=== PATIENT | female | born 1960 | race Caucasian/White ===

== ENCOUNTER 2016-07-11 09:17 | Emergency (ER) | payer MEDICARE, OTHER ==
[2016-07-11] MEDS ORDERED: KETOROLAC TROMETHAMINE 30 MG/1 ML VIAL IVPUSH ONE (09:21)
--- NOTE | 2016-07-11 09:21 | PDOC ---
[id number]: No Limitations - History of Present Illness Initial Comments: 07/11/16 09:23 The patient is a 55-year-old woman with a significant past medical history of hypercholesterolemia, non-insulin dependent diabetes mellitus, osteoporosis and arthritis who presents to the emergency department for further evaluation of a headache. Patient states that she started to feel sick yesterday, as she experienced generalized body aches, a sore throat, a tactile fever and a headache. She reports taking Tylenol yesterday and today, without significant relief. she also report diffuse abdominal pain. No chills, weakness, cough, shortness of breath, rhinorrhea, nasal congestion, ear pain, nausea, vomiting, diarrhea, constipation. No urinary complaints. She denies chest pain, lightheadedness, dizziness, visual changes, neck pain. Allergies: Sulfonamide Antibiotics. Past Surgical History: None reported. Social History: No tobacco, ETOH and recreational drug use. Primary Care Physician: Dr. Eddie Medina. <Esthela Francis - Last Filed: 07/11/16 09:33> <Perla Jesus - Last Filed: 07/11/16 12:06> - General Chief Complaint: Headache Stated Complaint: MIGRAINE Time Seen by Provider: 07/11/16 09:20 Past History <Esthela Francis - Last Filed: 07/11/16 09:33> - Past Medical History Anemia: No Asthma: No Cancer: No Cardiac Disorders: No CVA: No COPD: No CHF: No Dementia: No Diabetes: Yes GI Disorders: Yes Disorders: Yes (cysts in the kidneys) HTN: No Hypercholesterolemia: Yes Liver Disease: No Seizures: No Thyroid Disease: No - Surgical History Abdominal Surgery: No Appendectomy: No Cardiac Surgery: No Cholecystectomy: No Lung Surgery: No Neurologic Surgery: No Orthopedic Surgery: No - Psycho/Social/Smoking Cessation Hx Anxiety: No Suicidal Ideation: No Smoking Status: No Smoking History: Never smoked Have you smoked in the past 12 months: Yes Number of Cigarettes Smoked Daily: 2 If you are a former smoker, when did you quit?: 7 MONTHS 'Breaking Loose' booklet given: 07/15/12 Hx Alcohol Use: No Drug/Substance Use Hx: No Substance Use Type: None Hx Substance Use Treatment: No <Perla Jesus - Last Filed: 07/11/16 12:06> - Past Medical History Allergies/Adverse Reactions: Allergies Allergy/AdvReac Type Severity Reaction Status Date / Time Sulfa (Sulfonamide Allergy Verified 07/11/16 09:22 Antibiotics) sulfur [From Sulfur-8] Allergy Rash Verified 07/11/16 09:22 Home Medications: Ambulatory Orders Zolpidem Tartrate 10 mg PO HS 07/14/12 Canagliflozin [Invokana] 300 mg PO DAILY 03/04/16 Cholecalciferol (Vitamin D3) [Vitamin D3 -] 400 unit PO DAILY 03/04/16 Omeprazole 20 mg PO DAILY 03/04/16 Amoxicillin/Potassium Clav [Augmentin 500-125 Tablet] 1 each PO BID #20 tablet 07/11/16 Review of Systems - Review of Systems Able to Perform ROS?: Yes Comments:: 07/11/16 09:29 Constitutional - +Tactile fever. Generalized body aches. Patient denies Chills, weakness, HEENT: +Sore throat. denies vision changes Respiratory: Denies cough, sob, hemoptysis Cardiac: denies chest pain, palpitations, light headedness, leg swelling Abd/GI: +Abdominal pain. denies nausea, vomiting, blood per rectum, melena, diarrhea : denies dysuria, frequency, discharge Musculoskeletal - denies back pain, joint swelling skin - denies bruising, erythema, rash neurological: +Headache. denies numbness, focal weakness, tingling, ataxia, weakness hematologic: denies anemia, easy bruising, easy bleeding <Esthela Francis - Last Filed: 07/11/16 09:33> *Physical Exam - Vital Signs Last Vital Signs Temp Pulse Resp BP Pulse Ox 99.6 F 117 H 18 104/69 96 07/11/16 09:19 07/11/16 09:19 07/11/16 09:19 07/11/16 09:19 07/11/16 09:19 - Physical Exam Comments: 07/11/16 09:30 GENERAL: The patient is awake, alert, and fully oriented, Nontoxic - in no acute distress. HEAD: Normocephalic, atraumatic. EYES: extraocular movements intact, sclera anicteric, conjunctiva clear. ENT: +Exudative pharyngitis. Normal voice, moist mucous membranes. NECK: Normal range of motion, supple without lymphadenopathy, JVD, or masses. LUNGS: Breath sounds equal, clear to auscultation bilaterally. No wheezes, no crackles, no rales. HEART: Regular rate and rhythm, normal S1 and S2 without murmur, rub or gallop. ABDOMEN: Soft, diffuse abdominal discomfort to palpation without guarding, rebound or rigidity. Normoactive bowel sounds. No masses. EXTREMITIES: Normal range of motion, no edema. No clubbing or cyanosis. No cords , erythema, or tenderness. NEUROLOGICAL: Fully Oriented, Alert, Normal Mood/Affect, Motor Strength 5/5. No facial assymetry, Normal speech SKIN: Warm, Dry, normal turgor, no rashes or lesions noted. <Esthela Francis - Last Filed: 07/11/16 09:33> ED Treatment Course - LABORATORY CBC & Chemistry Diagram: 07/11/16 09:30 07/11/16 09:30 <Perla Jesus - Last Filed: 07/11/16 12:06> Medical Decision Making - Medical Decision Making 07/11/16 09:41 I, Dr. Perla Jesus, attest that the scribes documentation that appears above has been prepared under my direction and personally reviewed by me. I confirmed that the note above accurately reflects all work, treatment, procedures, and medical decision-making performed by me. Pt seen and examined immediately upon arrival in ED. PT with an exudative pharyngitis, tachycardia and diffuse body aches, pt is afebrile here in ED but reports tactile fever at home. Pt has not taken tylenol or advil since 8pm yesterday 07/11/16 10:50 Pt feeling better, rapid strep is positive, pt labs noted, pt given 1 gram of rocephin ivpb , will check ua and dc home with augmentin x 10 days treating strep, ua is pending. Pt agrees with this dcplan 07/11/16 12:04 Pt's ua shaows small blood, no obvious infection, small hematuria may be related to strep,Pt discharged home on augmentin and is aware of need to f/u in 48-72 hrs. Pt agreed with this dc plan <Perla Jesus - Last Filed: 07/11/16 12:06> *DC/Admit/Observation/Transfer - Attestations Scribe Attestion: 07/11/16 09:31 Documentation prepared by Esthela Francis, acting as back office medical assistant for Perla Jesus DO. <Esthela Francis - Last Filed: 07/11/16 09:33> - Discharge Dispostion Admit: No <Perla Jesus - Last Filed: 07/11/16 12:06> Diagnosis at time of Disposition: Strep throat - Discharge Dispostion Disposition: HOME Condition at time of disposition: Stable - Prescriptions Prescriptions: Amoxicillin/Potassium Clav [Augmentin 500-125 Tablet] 1 each PO BID #20 tablet - Referrals Referrals: Eddie Medina MD [Primary Care Provider] - - Patient Instructions Printed Discharge Instructions: Strep Throat Additional Instructions: return to ed for fever not decreasing with tylenol or motrin, trouble breathing or as needed. Pt to f/u with pcp in next 24-72hrs for reevaluation Print Language: FAROESE
[2016-07-11] MEDS ORDERED: SODIUM CHLORIDE 1,000 ML IV STA (09:22)
[2016-07-11 09:23] VITALS: BMI 24.1
[2016-07-11] MEDS ORDERED: METOCLOPRAMIDE HCL INJECTION 10 MG/2 ML VIAL IVPB ONE (09:23)
[2016-07-11] MEDS ORDERED: KETOROLAC TROMETHAMINE 30 MG/1 ML VIAL ONE (09:28)
[2016-07-11] MEDS ORDERED: METOCLOPRAMIDE HCL INJECTION 10 MG/2 ML VIAL ONE (09:28)
[2016-07-11 09:45] LABS: BASOPHIL 0.3 % (0-2.0); MCH 32.1 pg (25.7-33.7); MCHC 34.4 g/dl (32.0-36.0); MEAN CELL VOLUME 93.2 fl (80-96); MEAN PLT VOLUME 8.1 fl (7.5-11.1); NEUTROPHILS 84.2 % (42.8-82.8); PLATELET COUNT 214 K/MM3 (134-434); RDW 13.6 % (11.6-15.6); WHITE BLOOD COUNT 16.8 K/mm3 (4.0-10.0)
[2016-07-11] MEDS ORDERED: CEFTRIAXONE 1,000 MG in DEXTROSE 5%-WATER - 50 ML IVPB ONE (09:54)
[2016-07-11 10:06] LABS: ALBUMIN 3.7 g/dl (3.4-5.0); ALK PHOS 105 U/L (45-117); ANION GAP 7 (8-16); BILIRUBIN,TOTAL 0.4 mg/dL (0.2-1.0); CALCIUM 8.6 mg/dL (8.5-10.1); CO2 29 mmol/L (21-32); CREATININE 0.7 mg/dL (0.55-1.02); GLUCOSE,RANDOM 132 mg/dL (74-106); SGOT/AST 16 U/L (15-37); SGPT/ALT 24 U/L (12-78); TOT PROT 7.3 g/dl (6.4-8.2)
[2016-07-11] MEDS ORDERED: CEFTRIAXONE 50 ML ONE (10:20)
[2016-07-11] MEDS ORDERED: methylPREDNISolone NA SUCC 125 MG/2 ML VIAL ONE (10:39)
[2016-07-11] MEDS ORDERED: DEXAMETHASONE SOD PHOSPHATE 10 MG/1 ML VIAL IVPB ONE (10:39)
[2016-07-11] MEDS ORDERED: DEXAMETHASONE SOD PHOSPHATE 10 MG/1 ML VIAL ONE (10:40)
[2016-07-11 11:23] LABS: URINE APPEARANCE CLEAR; URINE BILIRUBIN NEGATIVE (NEGATIVE); URINE COLOR STRAW; URINE GLUCOSE (UA) 1+ (NEGATIVE); URINE KETONE NEGATIVE (NEGATIVE); URINE LEUK ESTERASE NEGATIVE (NEGATIVE); URINE NITRITE NEGATIVE (NEGATIVE); URINE PROTEIN NEGATIVE (NEGATIVE); URINE UROBILINOGEN NEGATIVE E.U./dl (0.2-1.0)
[2016-07-11 11:24] LABS: URINE BLOOD 1+ (NEGATIVE)
[2016-07-11 11:25] LABS: URINE BACTERIA RARE /hpf (NONE SEEN); URINE MUCUS RARE; URINE RBC 5 /hpf (0-3); URINE WBC <1 /hpf (3-5)
[2016-07-11 11:43] VITALS: BP 105/58; PULSE 89; TEMP 98.7
== END 2016-07-11 11:50 | disposition home or self-care (01) ==
LOC: JER 09:17
PROC: 3E03329 Introduction of Other Anti-infective into Peripheral Vein, Percutaneous Approach (ICD-10-PCS; principal; 2016-07-11)
PROC: 3E0333Z Introduction of Anti-inflammatory into Peripheral Vein, Percutaneous Approach (ICD-10-PCS; 2016-07-11)
PROC: 3E033GC Introduction of Other Therapeutic Substance into Peripheral Vein, Percutaneous Approach (ICD-10-PCS; 2016-07-11)
DX: J02.0 Streptococcal pharyngitis (principal); B95.0 Streptococcus, group A, as the cause of diseases classified elsewhere; E11.9 Type 2 diabetes mellitus without complications; Z79.84 Long term (current) use of oral hypoglycemic drugs; E78.00 Pure hypercholesterolemia, unspecified; M12.9 Arthropathy, unspecified
CPT/HCPCS: 36415; 80053; 81003; 81015; 85025; 87070; 87077; 87430; 96365; 96375; 99283-25

== ENCOUNTER 2017-01-29 09:28 | Emergency (ER) | payer MEDICARE, OTHER ==
[2017-01-29 09:34] VITALS: TEMP 97.6; BMI 25.4
[2017-01-29] MEDS ORDERED: FAMOTIDINE 20 MG/50 ML IVPB 20 MG/50 ML MG IVPB ONE ×2 (10:02→10:18)
[2017-01-29] MEDS ORDERED: MAG HYDROX/AL HYDROX/SIMETH 355 ML ORAL.SUSP PO ONE (10:02)
[2017-01-29] MEDS ORDERED: ONDANSETRON 4 MG/2 ML VIAL IVPUSH ONE (10:02)
[2017-01-29] MEDS ORDERED: SODIUM CHLORIDE 1,000 ML IV STA (10:02)
--- NOTE | 2017-01-29 10:08 | PDOC ---
History of Present Illness - General Chief Complaint: Pain Stated Complaint: abd pain Time Seen by Provider: 01/29/17 09:46 History Source: Patient - History of Present Illness Timing/Duration: reports: constant, getting worse Quality: reports: other (pressure) Abdominal Pain Onset Location: reports: epigastric, generalized abdomen Pain Radiation: reports: back Past History - Past Medical History Allergies/Adverse Reactions: Allergies Allergy/AdvReac Type Severity Reaction Status Date / Time Sulfa (Sulfonamide Allergy Verified 01/29/17 09:34 Antibiotics) sulfur [From Sulfur-8] Allergy Rash Verified 01/29/17 09:34 Home Medications: Ambulatory Orders Zolpidem Tartrate 10 mg PO HS 07/14/12 Canagliflozin [Invokana] 300 mg PO DAILY 03/04/16 Cholecalciferol (Vitamin D3) [Vitamin D3 -] 400 unit PO DAILY 03/04/16 Omeprazole 40 mg PO DAILY 03/04/16 Famotidine [Pepcid] 20 mg PO DAILY #14 tablet 01/29/17 Gabapentin 300 mg PO TID 01/29/17 Mag Hydrox/Al Hydrox/Simeth [Mylanta Suspension -] 30 ml PO Q6H #1 bottle Ondansetron HCl [Zofran] 4 mg PO Q8H #15 tablet 01/29/17 Anemia: No Asthma: No Cancer: No Cardiac Disorders: No CVA: No COPD: No CHF: No DVT: No Dementia: No Diabetes: Yes GI Disorders: Yes Disorders: Yes (cysts in the kidneys) HTN: No Hypercholesterolemia: Yes Liver Disease: No Seizures: No Thyroid Disease: No - Surgical History Abdominal Surgery: No Appendectomy: No Cardiac Surgery: No Cholecystectomy: No Lung Surgery: No Neurologic Surgery: No Orthopedic Surgery: No - Suicide/Smoking/Psychosocial Hx Smoking Status: No Smoking History: Never smoked Have you smoked in the past 12 months: Yes Number of Cigarettes Smoked Daily: 2 If you are a former smoker, when did you quit?: 7 MONTHS Information on smoking cessation initiated: No 'Breaking Loose' booklet given: 07/15/12 Hx Alcohol Use: No Drug/Substance Use Hx: No Substance Use Type: None Hx Substance Use Treatment: No Review of Systems - Review of Systems Constitutional: No: Chills, Fever Respiratory: No: Shortness of Breath Cardiac (ROS): No: Chest Pain ABD/GI: Yes: Nausea, Vomiting. No: Blood Streaked Bowels, Rectal Bleeding, Tarry Stools : No: Dysuria *Physical Exam - Vital Signs Last Vital Signs Temp Pulse Resp BP Pulse Ox 97.6 F 71 18 97/65 100 01/29/17 09:32 01/29/17 09:32 01/29/17 09:32 01/29/17 09:32 01/29/17 09:32 - Physical Exam General Appearance: Yes: Appropriately Dressed, Intoxicated. No: Apparent Distress HEENT: positive: Normal Voice Neck: positive: Supple Respiratory/Chest: positive: Lungs Clear, Normal Breath Sounds. negative: Respiratory Distress Cardiovascular: positive: Regular Rate, S1, S2 Gastrointestinal/Abdominal: positive: Normal Bowel Sounds, Tender (diffusely, most notably to epigastrium, NT to RUQ), Soft. negative: Distended, Guarding, Rebound Musculoskeletal: negative: CVA Tenderness Extremity: positive: Normal Inspection Integumentary: positive: Dry, Warm Neurologic: positive: Fully Oriented, Alert, Normal Mood/Affect ED Treatment Course - LABORATORY CBC & Chemistry Diagram: 01/29/17 10:15 01/29/17 10:15 Medical Decision Making - Medical Decision Making 01/29/17 10:03 56 yo F, h/o HLD, NIDDM, OA, arthritis, gastritis on omeprazole daily, p/w diffuse abd pain radiating to back a/w nausea and 1 e/o vomiting x several days. States pain worse w/ food. No acute change in BM, melena, BRBPR, dysuria, f/c. States sxs similar to her gastritis. No h/o excessive ETOH use or gallstones. No h/o pancreatitis. Denies CP or SOB. See exam Epigastric pain Feels like pt's gastritis (gastritis and hiatal hernia on endoscopy in 2012, neg hpylori as per records-on omeprazole) Hypotensive to 90s/60s but well oz and in NAD w/ diffuse ttp but most notably in epigastrium -GI cocktail -IVF -ekg/labs -reassess 01/29/17 11:40 Pt reports feeling better at this time and feels comfortable going home. Will dc to f/u with her automotive painter helper *DC/Admit/Observation/Transfer Diagnosis at time of Disposition: Epigastric abdominal pain - Discharge Dispostion Disposition: HOME Condition at time of disposition: Improved - Prescriptions Prescriptions: Famotidine [Pepcid] 20 mg PO DAILY #14 tablet Mag Hydrox/Al Hydrox/Simeth [Mylanta Suspension -] 30 ml PO Q6H #1 bottle Ondansetron HCl [Zofran] 4 mg PO Q8H #15 tablet - Referrals Referrals: James Garza MD [Primary Care Provider] - - Patient Instructions Printed Discharge Instructions: Gastritis Additional Instructions: Take medications as directed and follow up with your automotive painter helper - Post Discharge Activity
[2017-01-29] MEDS ORDERED: ONDANSETRON 4 MG/2 ML VIAL ONE (10:18)
[2017-01-29] MEDS ORDERED: MAG HYDROX/AL HYDROX/SIMETH 30 ML UNIT-DOSE CUP ONE (10:18)
[2017-01-29 10:27] LABS: BASOPHIL 0.8 % (0-2.0); EOSINOPHIL 2.7 % (0-4.5); MCH 31.5 pg (25.7-33.7); MCHC 33.2 g/dl (32.0-36.0); MEAN CELL VOLUME 94.7 fl (80-96); MEAN PLT VOLUME 8.2 fl (7.5-11.1); NEUTROPHILS 48.5 % (42.8-82.8); PLATELET COUNT 286 K/MM3 (134-434); RDW 13.2 % (11.6-15.6); WHITE BLOOD COUNT 6.4 K/mm3 (4.0-10.0)
[2017-01-29 10:35] LABS: URINE APPEARANCE CLEAR; URINE BILIRUBIN NEGATIVE (NEGATIVE); URINE BLOOD 1+ (NEGATIVE); URINE COLOR LTYELLOW; URINE GLUCOSE (UA) 3+ (NEGATIVE); URINE KETONE NEGATIVE (NEGATIVE); URINE NITRITE NEGATIVE (NEGATIVE); URINE PROTEIN NEGATIVE (NEGATIVE); URINE UROBILINOGEN NEGATIVE mg/dL (0.2-1.0)
[2017-01-29 10:47] LABS: ALBUMIN 3.8 g/dl (3.4-5.0); ANION GAP 8 (8-16); CALCIUM 8.8 mg/dL (8.5-10.1); CO2 30 mmol/L (21-32); CREATININE 0.7 mg/dL (0.55-1.02); GLUCOSE,RANDOM 106 mg/dL (74-106); SGOT/AST 9 U/L (15-37); SGPT/ALT 20 U/L (12-78); TOT PROT 7.8 g/dl (6.4-8.2)
[2017-01-29 10:49] LABS: ALK PHOS 105 U/L (45-117); BILIRUBIN,TOTAL 0.4 mg/dL (0.2-1.0)
[2017-01-29 11:54] LABS: URINE MUCUS RARE; URINE RBC 2; URINE WBC 1
[2017-01-29] MEDS ORDERED: METOCLOPRAMIDE HCL INJECTION 10 MG/2 ML VIAL IVPB ONE (11:55)
[2017-01-29] MEDS ORDERED: RANITIDINE HCL 150 MG TABLET (FP) PO ONE (11:56)
[2017-01-29] MEDS ORDERED: METOCLOPRAMIDE HCL INJECTION 10 MG/2 ML VIAL ONE (11:57)
[2017-01-29] MEDS ORDERED: RANITIDINE HCL 150 MG TABLET (FP) ONE (12:00)
[2017-01-29 12:10] VITALS: BP 111/68; PULSE 69
[2017-01-29 20:25] LABS: URINE LEUK ESTERASE Negative (NEGATIVE)
--- NOTE | 2017-02-03 12:13 | EKG ---
Test Reason : Blood Pressure : / mmHG Vent. Rate : 059 BPM Atrial Rate : 059 BPM P-R Int : 110 ms QRS Dur : 086 ms QT Int : 452 ms P-R-T Axes : 031 039 054 degrees QTc Int : 447 ms SINUS BRADYCARDIA WITH SHORT DC OTHERWISE NORMAL ECG WHEN COMPARED WITH ECG OF 22-AUG-2005 14:52, NO SIGNIFICANT CHANGE WAS FOUND Confirmed by SARAN LOUIE MD ([id number]) on 02/03/2017 12:13:14 PM Referred By: Confirmed By:SARAN LOUIE MD
== END 2017-01-29 12:45 | disposition home or self-care (01) ==
LOC: JER 09:28
PROC: 3E033GC Introduction of Other Therapeutic Substance into Peripheral Vein, Percutaneous Approach (ICD-10-PCS; principal; 2017-01-29)
PROC: 3E0337Z Introduction of Electrolytic and Water Balance Substance into Peripheral Vein, Percutaneous Approach (ICD-10-PCS; 2017-01-29)
DX: R10.13 Epigastric pain (principal); E11.9 Type 2 diabetes mellitus without complications; E78.00 Pure hypercholesterolemia, unspecified; Z87.891 Personal history of nicotine dependence
CPT/HCPCS: 36415; 80053; 81003; 81015; 83690; 85025; 93005; 93010; 96361; 96365; 96375; 99283-25

== ENCOUNTER 2017-03-03 16:02 | Emergency (ER) | payer MEDICARE, OTHER ==
--- NOTE | 2017-03-03 16:10 | PDOC ---
Rapid Medical Evaluation Time Seen by Provider: 03/03/17 16:07 Medical Evaluation: Allergies Allergy/AdvReac Type Severity Reaction Status Date / Time Sulfa (Sulfonamide Allergy Verified 02/26/17 09:27 Antibiotics) sulfur [From Sulfur-8] Allergy Rash Verified 02/26/17 09:27 12 16:08 I have performed a brief in person evaluation of this patient. The patient presents with chief complaint of : nausea, not eating not drinking 4 days with left sided abd pain . hx DM, gastritis, Pertinent PE findings: appears uncomfortable I have ordered the following: ua, labs The patient will proceed to the ER for further evaluation.
[2017-03-03] MEDS ORDERED: ONDANSETRON *ODT* 4 MG TABLET SL ONE (16:11)
[2017-03-03 16:12] VITALS: BP 127/71; PULSE 63; TEMP 97.5; BMI 24.4
[2017-03-03 16:41] LABS: BASO % 0.7 % (0-2.0); EOS % 1.4 % (0-4.5); MCH 31.8 pg (25.7-33.7); MCHC 33.4 g/dl (32.0-36.0); MEAN CELL VOLUME 95.4 fl (80-96); MEAN PLT VOLUME 8.8 fl (7.5-11.1); NEUT % 49.1 % (42.8-82.8); PLATELET COUNT 276 K/MM3 (134-434); RDW 13.1 % (11.6-15.6); WHITE BLOOD COUNT 7.1 K/mm3 (4.0-10.0)
[2017-03-03 16:56] LABS: URINE APPEARANCE CLEAR; URINE BILIRUBIN NEGATIVE (NEGATIVE); URINE BLOOD NEGATIVE (NEGATIVE); URINE COLOR STRAW; URINE GLUCOSE (UA) NEGATIVE (NEGATIVE); URINE KETONE NEGATIVE (NEGATIVE); URINE LEUK ESTERASE TRACE (NEGATIVE); URINE NITRITE NEGATIVE (NEGATIVE); URINE PROTEIN NEGATIVE (NEGATIVE); URINE UROBILINOGEN NEGATIVE mg/dL (0.2-1.0)
[2017-03-03 17:03] LABS: ALBUMIN 3.9 g/dl (3.4-5.0); AMYLASE 70 U/L (25-115); ANION GAP 5 (8-16); BILIRUBIN,TOTAL 0.4 mg/dL (0.2-1.0); CALCIUM 8.7 mg/dL (8.5-10.1); CO2 31 mmol/L (21-32); CREATININE 0.8 mg/dL (0.55-1.02); GLUCOSE,RANDOM 104 mg/dL (74-106); SGOT/AST 12 U/L (15-37); SGPT/ALT 26 U/L (12-78)
[2017-03-03 17:04] LABS: ALK PHOS 121 U/L (45-117); TOT PROT 7.8 g/dl (6.4-8.2)
[2017-03-03 17:55] LABS: URINE BACTERIA RARE /hpf (NONE SEEN); URINE MUCUS RARE; URINE WBC 1 /hpf (3-5)
[2017-03-03] MEDS ORDERED: ONDANSETRON *ODT* 4 MG TABLET ONE ×2 (17:55→20:49)
--- NOTE | 2017-03-03 20:31 | PDOC ---
Attending Attestation - Resident Resident Name: Yoni Fierro - ED Attending Attestation I have performed the following: I have examined & evaluated the patient, The case was reviewed & discussed with the resident, I agree w/resident's findings & plan, Exceptions are as noted - Physicial Exam PE: 03/03/17 20:40 *Physical Exam General Appearance: Yes: Appropriately Dressed. No: Apparent Distress, Intoxicated HEENT: positive: EOMI, JASON, Normal ENT Inspection, Normal Voice, TMs Normal, Pharynx Normal. negative: Pale Conjunctivae, Photophobia, Scleral Icterus (R), Scleral Icterus (L) Neck: positive: Trachea midline, Normal Thyroid, Supple. negative: Tender, Rigid, Carotid bruit, Stridor, Lymphadenopathy (R), Lymphadenopathy (L), Thyromegaly Respiratory/Chest: positive: Lungs Clear, Normal Breath Sounds. negative: Chest Tender, Respiratory Distress, Accessory Muscle Use, Labored Respiration, RES, Crackles, Rales, Rhonchi, Stridor, Wheezing, Dullness Cardiovascular: positive: Regular Rhythm, Regular Rate, S1, S2. negative: Edema , JVD, Murmur, Bradycardia, Tachycardia Vascular Pulses: Dorsalis-Pedis (R): 2+, Doralis-Pedis (L): 2+ Gastrointestinal/Abdominal: positive: Normal Bowel Sounds, Flat, Soft. negative : Tender, Organomegaly, Pulsatile Mass, Increased Bowel Sounds, Decreased BS, Distended, Guarding, Rebound, Hernia, Hepatomegaly, Spleenomegaly Lymphatic: negative: Adenopathy, Tenderness Musculoskeletal: positive: Normal Inspection. negative: CVA Tenderness, Decreased Range of Motion Extremity: positive: Normal Capillary Refill, Normal Inspection, Normal Range of Motion, Pelvis Stable. negative: Tender, Pedal Edema, Swelling, Erythema Integumentary: positive: Normal Color, Dry, Warm. negative: Cyanotic, Erythema , Jaundice, Rash Neurologic: positive: penology professor II-XII NML intact, Fully Oriented, Alert, Normal Mood/ Affect, Motor Strength 5/5. negative: EOM Palsy, Facial Droop, Sensory Deficit <Daquan Moore - Last Filed: 03/03/17 20:40> - HPI HPI: 03/03/17 20:41 The patient is a 56 year old female, with a significant past medical history of arthritis, diabetes, hypercholesterolemia, diverticulosis, gastritis, and kidney stones, who presents to the emergency department with left sided abdominal pain radiating to her left back for about a month with new onset of alternating constipation and diarrhea. She states the abdominal pain is relieved after moving bowels. She reportedly had a normal abdominal CT on 02/26 with exception for a right pelvic lipoma. The patient was discharged with GI referral and reports having an appointment in March. She states she was in [facility] last week and reportedly ate some new foods. She denies chest pain, shortness of breath, headache and dizziness. She denies fever, chills, nausea, vomit. She denies dysuria, frequency, urgency and hematuria. Allergies: sulfa PCP - Dr. Garza - Medical Decision Making 03/03/17 20:41 Documentation prepared by Nicolle Santos, acting as hospital medical assistant for Daquan Moore DO <Nicolle Santos - Last Filed: 03/03/17 20:41>
[2017-03-03] MEDS ORDERED: DICYCLOMINE HCL 10 MG/5 ML PO ONE (20:38)
--- NOTE | 2017-03-03 20:40 | PDOC ---
History of Present Illness - General Chief Complaint: Pain Stated Complaint: REVISIT/ ABD PAIN Time Seen by Provider: 03/03/17 16:07 History Source: Patient Exam Limitations: No Limitations - History of Present Illness Initial Comments: 03/03/17 20:39 The patient is a 56-year-old female, with a significant past medical history of arthritis, diabetes, hypercholesterolemia, diverticulosis, gastritis, and kidney stones, who presents to the ED with nausea, diarrhea, and LLQ abdominal pain that began one month ago. The diarrhea is usually happens right after meals and seems to be also correlated with stressful events. She also states that she had multiple episodes of diarrhea last week when we was abroad in [facility]. The abdominal pain is immediately relieved when moving her bowels. LAst episode of diarrhea was last night. Patient was seen on the in this ED where a CT abdoment was performed and was negative for obstruction, stones or diverticulitis. Patient has a follow up appointment with GI on March [address] Mojica. 03/03/17 20:59 03/03/17 21:06 Past History - Past Medical History Allergies/Adverse Reactions: Allergies Allergy/AdvReac Type Severity Reaction Status Date / Time Sulfa (Sulfonamide Allergy Verified 03/03/17 16:12 Antibiotics) sulfur [From Sulfur-8] Allergy Rash Verified 03/03/17 16:12 Home Medications: Ambulatory Orders Zolpidem Tartrate 10 mg PO HS 07/14/12 Canagliflozin [Invokana] 300 mg PO DAILY 03/04/16 Omeprazole 40 mg PO DAILY 03/04/16 Gabapentin 300 mg PO TID 01/29/17 Mag Hydrox/Al Hydrox/Simeth [Mylanta Suspension -] 30 ml PO Q6H #1 bottle Ciprofloxacin HCl [Cipro] 500 mg PO BID 02/26/17 Metronidazole [Flagyl -] 500 mg PO BID 02/26/17 Prochlorperazine Maleate [Compazine] 10 mg PO TID 02/26/17 Ondansetron HCl [Zofran] 4 mg PO PRN #30 tablet 03/03/17 Anemia: No Asthma: No Cancer: No Cardiac Disorders: No CVA: No COPD: No CHF: No DVT: No Dementia: No Diabetes: Yes GI Disorders: Yes Disorders: Yes (cysts in the kidneys) HTN: No Hypercholesterolemia: Yes Liver Disease: No Seizures: No Thyroid Disease: No - Surgical History Abdominal Surgery: No Appendectomy: No Cardiac Surgery: No Cholecystectomy: No Lung Surgery: No Neurologic Surgery: No Orthopedic Surgery: No - Reproductive History Is Patient Now?: No - Immunization History Immunization Up to Date: Yes - Suicide/Smoking/Psychosocial Hx Smoking Status: No Smoking History: Never smoked Have you smoked in the past 12 months: Yes Number of Cigarettes Smoked Daily: 2 If you are a former smoker, when did you quit?: 7 MONTHS Information on smoking cessation initiated: No 'Breaking Loose' booklet given: 07/15/12 Hx Alcohol Use: No Drug/Substance Use Hx: No Substance Use Type: None Hx Substance Use Treatment: No Review of Systems - Review of Systems Able to Perform ROS?: Yes HEENTM: No: Symptoms Reported Respiratory: No: Symptoms reported Cardiac (ROS): No: Symptoms Reported ABD/GI: Yes: See HPI : No: Symptoms Reported Musculoskeletal: No: Symptoms Reported Integumentary: No: Symptoms Reported Neurological: No: Symptoms reported All Other Systems: Reviewed and Negative *Physical Exam - Vital Signs Last Vital Signs Temp Pulse Resp BP Pulse Ox 97.5 F L 63 17 127/71 100 03/03/17 16:09 03/03/17 16:09 03/03/17 16:09 03/03/17 16:09 03/03/17 16:09 - Physical Exam General Appearance: Yes: Nourished, Appropriately Dressed. No: Apparent Distress HEENT: positive: EOMI, JASON, Normal ENT Inspection Neck: negative: Tender Respiratory/Chest: positive: Lungs Clear, Normal Breath Sounds. negative: Chest Tender Cardiovascular: positive: Regular Rhythm, Regular Rate, S1, S2 Gastrointestinal/Abdominal: positive: Normal Bowel Sounds, Increased Bowel Sounds, Tenderness (LLQ). negative: Protuberent, Distended ED Treatment Course - LABORATORY CBC & Chemistry Diagram: 03/03/17 16:25 03/03/17 16:25 - ADDITIONAL ORDERS Additional order review: Laboratory Results 03/03/17 03/03/17 16:30 16:25 Sodium 139 Potassium 3.9 Chloride 103 Carbon Dioxide 31 Anion Gap 5 L BUN 10 Creatinine 0.8 D Creat Clearance w eGFR > 60 Random Glucose 104 Calcium 8.7 Total Bilirubin 0.4 D AST 12 L ALT 26 D Alkaline Phosphatase 121 H Total Protein 7.8 Albumin 3.9 Total Amylase 70 Lipase 164 Urine Color Straw Urine Appearance Clear Urine pH 8.0 D Ur Specific [place] 1.008 Urine Protein Negative Urine Glucose (UA) Negative Urine Ketones Negative Urine Blood Negative Urine Nitrite Negative Urine Bilirubin Negative Urine Urobilinogen Negative Urine WBC (Auto) 1 Urine RBC (Auto) None Ur Epithelial Cells Rare Urine Bacteria Rare Urine Mucus Rare 03/03/17 16:25 RBC 4.10 MCV 95.4 MCHC 33.4 RDW 13.1 MPV 8.8 Neutrophils % 49.1 D Lymphocytes % 40.0 D Monocytes % 8.8 Eosinophils % 1.4 Basophils % 0.7 - RADIOLOGY Radiology Studies Ordered: Category Date Time Status ABDOMEN FLAT & UPRIGHT [RAD] Stat Radiology 03/03/17 20:32 Ordered - Medications Given in the ED: ED Medications Discontinued Medications Generic Name Dose Route Start Last Admin Trade Name Freq PRN Reason Stop Dose Admin Ondansetron HCl 4 mg 03/03/17 16:11 03/03/17 17:55 Zofran Odt - SL 03/03/17 16:12 4 mg ONCE ONE Administration Medical Decision Making - Medical Decision Making 03/03/17 21:00 56F with LLQ abdominal pain and diarrhea induced by meals, stressed and relieved by bowel movements. IBS vs Celiac vs crohns vs UC Most likely IBS due to sx induced by stressors and relieved by bowel movement. Prescription given for zofran, patient given literature and will follow up with GI appointment with Dr. Mojica on March 16. 03/03/17 21:04 *DC/Admit/Observation/Transfer Diagnosis at time of Disposition: IBS (irritable bowel syndrome) - Discharge Dispostion Disposition: HOME Admit: No - Prescriptions Prescriptions: Ondansetron HCl [Zofran] 4 mg PO PRN #30 tablet - Referrals Referrals: James Garza MD [Primary Care Provider] - Dl Mojica MD [Staff Physician] - - Patient Instructions Printed Discharge Instructions: DI for Irritable Bowel Syndrome, Probiotic Bifidobacterium Bifidum Associated with Improved Irritable Bowel , Irritable Bowel Syndrome: Strategies for Managing a Complex Condition, Natural and Alternative Treatment Study Report: Peppermint and Irritable [place], Natural and Alternative Treatment Study Report: Irritable Bowel Syndrome an, Natural and Alternative Treatment Study Report: Melatonin for Irritable [place] Additional Instructions: Follow up with your appointment with Dr. Mojica on March 16. Come back to the ED for any new, worsening or concerning symptom. Print Language: SAUDI ARABIAN - Post Discharge Activity
[2017-03-03] MEDS ORDERED: ONDANSETRON 4 MG TABLET PO ONE (20:41)
[2017-03-03] MEDS ORDERED: DICYCLOMINE HCL 10 MG CAPSULE ONE (20:48)
[2017-03-03] MEDS ORDERED: ONDANSETRON 8 MG TABLET (FP) PO ONE (20:48)
[2017-03-03 21:43] LABS: URINE LEUK ESTERASE Negative (NEGATIVE)
== END 2017-03-03 21:17 | disposition home or self-care (01) ==
LOC: JER 16:02
DX: K58.9 Irritable bowel syndrome, unspecified (principal); E11.9 Type 2 diabetes mellitus without complications; E78.00 Pure hypercholesterolemia, unspecified; Z87.891 Personal history of nicotine dependence
CPT/HCPCS: 36415; 80053; 81003; 81015; 82150; 83690; 85025; 99284-25

== ENCOUNTER 2017-11-27 13:26 | Emergency (ER) | payer MEDICARE, OTHER ==
[2017-11-27 13:36] VITALS: BP 111/50; PULSE 66; TEMP 98; BMI 26.4
[2017-11-27] MEDS ORDERED: DIPHTH,PERTUSS(ACELL),TET 0.5 ML DISP.SYRIN IM ONE (14:07)
--- NOTE | 2017-11-27 14:20 | PDOC ---
History of Present Illness - General Chief Complaint: Injury Stated Complaint: FALL, INJURY Time Seen by Provider: 11/27/17 14:02 - History of Present Illness Initial Comments: 56-year-old female with a past medical history significant for diabetes and neuropathy she takes metformin and gabapentin presents for evaluation after fall about a half hour prior to arrival. She states she tripped on the sidewalk in front of a senior care landing on both knees and hands. Her biggest complaint is her right fifth toe. She denies hitting her head. There has been no post injury nausea vomiting headache or visual changes. 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) HTN: No Hypercholesterolemia: Yes Liver Disease: No Seizures: No Thyroid Disease: No - Surgical History Abdominal Surgery: No Appendectomy: No Cardiac Surgery: No Cholecystectomy: No Lung Surgery: No Neurologic Surgery: No Orthopedic Surgery: No - Immunization History Immunization Up to Date: Yes - Suicide/Smoking/Psychosocial Hx Smoking Status: No Smoking History: Never smoked Have you smoked in the past 12 months: Yes Number of Cigarettes Smoked Daily: 2 If you are a former smoker, when did you quit?: 7 MONTHS 'Breaking Loose' booklet given: 07/15/12 Hx Alcohol Use: No Drug/Substance Use Hx: No Substance Use Type: None Hx Substance Use Treatment: No Review of Systems - Review of Systems Musculoskeletal: Yes: See HPI, Joint Pain All Other Systems: Reviewed and Negative *Physical Exam - Vital Signs Last Vital Signs Temp Pulse Resp BP Pulse Ox 98 F 66 18 111/50 98 11/27/17 13:33 11/27/17 13:33 11/27/17 13:33 11/27/17 13:33 11/27/17 13:33 - Physical Exam Comments: Bilateral knee examinations show normal skin color and temperature there are very superficial abrasions on the anterior aspects of both knee. There is full nonpainful range of motion no evidence of instability or joint line tenderness. Thighs and calves are soft and nontender she has full bilateral hip and ankle range of motion. Bilateral upper extremity exams show full range of motion of the elbows wrists and forearms in all planes. She has no tenderness she has small superficial abrasions on the palmar aspects of both hands. She has no gross sensorimotor deficits. She is neurovascularly intact. Right fifth toe is swollen and tender at the PIPJ without gross sensorimotor deficits decreased range of motion 11/27/17 14:18 ED Treatment Course - RADIOLOGY Radiology Studies Ordered: Category Date Time Status TOE(S) RIGHT [RAD] Stat Radiology 11/27/17 14:07 Ordered Medical Decision Making - Medical Decision Making There is an oblique fracture unicortical starting laterally at the base of the proximal phalanx of the fifth toe of the right foot hard sole shoe weight-bear as tolerated follow-up with orthopedics 11/27/17 14:38 *DC/Admit/Observation/Transfer Diagnosis at time of Disposition: Fracture, toe, Abrasions of multiple sites - Discharge Dispostion Disposition: HOME Condition at time of disposition: Stable Decision to Admit order: No - Referrals Referrals: James Garza MD [Primary Care Provider] - Alec Moscoso MD [Staff Physician] - - Patient Instructions Printed Discharge Instructions: DI for Abrasion, Toe Fracture, DI for Toe Fracture Additional Instructions: You have a fractured toe. He may weight-bear as tolerated with use of a hard sole shoe. Keep the abrasions on her hands and knees cleaning with soap and water and left open to air. Please follow-up with orthopedics for further evaluation and treatment options of your fractured toe. Return to the emergency room should symptoms worsen or go unresolved. He may take Tylenol for pain. - Post Discharge Activity
== END 2017-11-27 14:44 | disposition home or self-care (01) ==
LOC: JERFT 13:26
PROC: 3E0234Z Introduction of Serum, Toxoid and Vaccine into Muscle, Percutaneous Approach (ICD-10-PCS; principal; 2017-11-27)
DX: S92.514A Nondisplaced fracture of proximal phalanx of right lesser toe(s), initial encounter for closed fracture (principal); S80.212A Abrasion, left knee, initial encounter; S80.211A Abrasion, right knee, initial encounter; S50.312A Abrasion of left elbow, initial encounter; S50.311A Abrasion of right elbow, initial encounter; W18.39XA Other fall on same level, initial encounter; Y93.89 Activity, other specified; Y92.480 Sidewalk as the place of occurrence of the external cause; Y99.8 Other external cause status; E11.9 Type 2 diabetes mellitus without complications; Z79.84 Long term (current) use of oral hypoglycemic drugs; G62.9 Polyneuropathy, unspecified; Z88.2 Allergy status to sulfonamides
CPT/HCPCS: 73660-TC-FY; 90471; 90715; 99281-25

== ENCOUNTER 2020-07-12 13:14 | Emergency (ER) | payer MEDICARE, OTHER ==
[2020-07-12 13:23] VITALS: BP 119/59; PULSE 69; TEMP 98.5; BMI 27.7
[2020-07-12] MEDS ORDERED: FAMOTIDINE 20 MG TABLET PO ONE (14:07)
[2020-07-12] MEDS ORDERED: predniSONE 10 MG TABLET (UD) ONE (14:13)
[2020-07-12] MEDS ORDERED: FAMOTIDINE 20 MG TABLET ONE (14:14)
[2020-07-12] MEDS ORDERED: predniSONE 20 MG TABLET (UD) ONE (14:14)
[2020-07-12] MEDS ORDERED: predniSONE 20 MG TABLET (UD) PO ONE (14:22)
[2020-07-13] MEDS ORDERED: predniSONE 20 MG TABLET (UD) PO ONE (14:08)
== END 2020-07-12 15:24 | disposition home or self-care (01) ==
LOC: JERFT 13:14
DX: T78.40XA Allergy, unspecified, initial encounter (principal)
CPT/HCPCS: 99284-25

== ENCOUNTER 2021-01-13 18:21 | Observation (INO) | payer MEDICARE, OTHER ==
[2021-01-13 20:45] LABS: BASO % 0.6 % (0-2.0); EOS % 0.1 % (0-4.5); HEMATOCRIT 38.1 % (32.4-45.2); HEMOGLOBIN 13.1 GM/dL (10.7-15.3); LYMPH % 15.5 % (8-40); MCH 31.9 pg (25.7-33.7); MCHC 34.2 g/dl (32.0-36.0); MEAN CELL VOLUME 93.2 fl (80-96); MEAN PLT VOLUME 8.4 fl (7.5-11.1); MONO % 5.7 % (3.8-10.2); NEUT % 78.1 % (42.8-82.8); PLATELET COUNT 268 10^3/uL (134-434); RBC 4.09 M/mm3 (3.60-5.2); RDW 13.6 % (11.6-15.6); WHITE BLOOD COUNT 10.5 K/mm3 (4.0-10.0)
[2021-01-13 20:59] LABS: INR 0.91 (0.83-1.09); PROTHROMBIN TIME (PATIENT) 10.6 SEC (9.7-13.0)
[2021-01-13 21:01] LABS: ACTIVATED PTT 30.1 SECONDS (25.2-36.5)
[2021-01-13 21:03] LABS: CHLORIDE 107 mmol/L (98-107); SODIUM 141 mmol/L (136-145)
[2021-01-13 21:05] LABS: CALCIUM 9.1 mg/dL (8.5-10.1)
[2021-01-13 21:06] LABS: ALBUMIN 3.8 g/dl (3.4-5.0); ANION GAP 9 MMOL/L (8-16); BLOOD UREA NITROGEN 13.2 mg/dL (7-18); CO2 25 mmol/L (21-32); GLUCOSE,RANDOM 139 mg/dL (74-106)
[2021-01-13 21:07] LABS: MAGNESIUM 2.4 mg/dL (1.8-2.4)
[2021-01-13 21:09] LABS: CREATININE 1.1 mg/dL (0.55-1.3); SGOT/AST 11 U/L (15-37); SGPT/ALT 26 U/L (13-61)
[2021-01-13 21:11] LABS: BILIRUBIN,TOTAL 0.3 mg/dL (0.2-1); TOT PROT 7.9 g/dl (6.4-8.2)
[2021-01-13 21:12] LABS: ALK PHOS 105 U/L (45-117)
[2021-01-13] MEDS ORDERED: LACTATED RINGERS SOLUTION 1000 ML INFUS.BAG IV ONE (21:19)
[2021-01-13] MEDS ORDERED: SODIUM CHLORIDE 0.9% 500 ML INFUS.BAG IV ONE (21:43)
[2021-01-13] MEDS ORDERED: MECLIZINE HCL 25 MG TABLET (FP) PO ONE (21:43)
[2021-01-13] MEDS ORDERED: MECLIZINE HCL 25 MG TABLET (FP) ONE (21:51)
[2021-01-13] MEDS ORDERED: NALOXONE HCL 1 MG/ML ML IM ONE (22:01)
[2021-01-13 22:17] LABS: PH,URINE 7.5 (5.0-8.0); URINE APPEARANCE CLEAR; URINE BILIRUBIN NEGATIVE (NEGATIVE); URINE COLOR YELLOW; URINE GLUCOSE (UA) 3+ (NEGATIVE); URINE KETONE NEGATIVE (NEGATIVE); URINE LEUK ESTERASE NEGATIVE (NEGATIVE); URINE NITRITE NEGATIVE (NEGATIVE); URINE PROTEIN NEGATIVE (NEGATIVE); URINE UROBILINOGEN 0.2 mg/dL (0.2-1.0)
[2021-01-14] MEDS ORDERED: BACITRACIN 0.9 GM PACKET ONE (00:02)
[2021-01-14 02:45] VITALS: BMI 25.0
[2021-01-14] MEDS ORDERED: MECLIZINE HCL 25 MG TABLET (FP) PO PRN (04:00)
[2021-01-14] MEDS: INSULIN SLIDING SCALE (NOVOLOG) 1 VIAL SQ SCH ×4 (06:06→21:22)
[2021-01-14 07:30] LABS: BASO % 0.8 % (0-2.0); EOS % 0.8 % (0-4.5); HEMATOCRIT 34.7 % (32.4-45.2); HEMOGLOBIN 11.9 GM/dL (10.7-15.3); LYMPH % 37.3 % (8-40); MCH 32.2 pg (25.7-33.7); MCHC 34.3 g/dl (32.0-36.0); MEAN CELL VOLUME 93.9 fl (80-96); MEAN PLT VOLUME 8.5 fl (7.5-11.1); MONO % 7.6 % (3.8-10.2); NEUT % 53.5 % (42.8-82.8); PLATELET COUNT 247 10^3/uL (134-434); RBC 3.69 M/mm3 (3.60-5.2); RDW 13.5 % (11.6-15.6); WHITE BLOOD COUNT 8.3 K/mm3 (4.0-10.0)
[2021-01-14 07:38] LABS: CALCIUM 8.1 mg/dL (8.5-10.1)
[2021-01-14 07:39] LABS: BLOOD UREA NITROGEN 14.2 mg/dL (7-18)
[2021-01-14 07:41] LABS: CREATININE 0.7 mg/dL (0.55-1.3)
[2021-01-14] MEDS: PANTOPRAZOLE 40 MG TABLET PO SCH (09:21)
[2021-01-14] MEDS: ENOXAPARIN NA (PORCINE) 40 MG/0.4 ML DISP.SYRIN SQ SCH (09:21)
[2021-01-14] MEDS ORDERED: PRAMIPEXOLE DIHYDROCHLORIDE 0.125 MG TABLET PO SCH (20:30)
[2021-01-14] MEDS: ACETAMINOPHEN 325 MG TABLET (FP) PO PRN (21:53)
[2021-01-15 08:05] VITALS: BP 115/55; PULSE 65; TEMP 98.2
[2021-01-15] MEDS: ENOXAPARIN NA (PORCINE) 40 MG/0.4 ML DISP.SYRIN SQ SCH (09:11)
[2021-01-15] MEDS: PANTOPRAZOLE 40 MG TABLET PO SCH (09:11)
[2021-01-15] MEDS: ACETAMINOPHEN 325 MG TABLET (FP) PO PRN (09:12)
[2021-01-15] MEDS: INSULIN SLIDING SCALE (NOVOLOG) 1 VIAL SQ SCH ×2 (09:17→11:48)
== END 2021-01-15 14:47 | disposition home or self-care (01) ==
LOC: JER 18:21 → JERBED 21:00 → J4W 01-14 01:43
PROVIDERS: ADMIT Internal Medicine; ATTEND Family Medicine
PROC: 3E023GC Introduction of Other Therapeutic Substance into Muscle, Percutaneous Approach (ICD-10-PCS; principal; 2021-01-13)
PROC: 3E0337Z Introduction of Electrolytic and Water Balance Substance into Peripheral Vein, Percutaneous Approach (ICD-10-PCS; 2021-01-13)
DX: R42 Dizziness and giddiness (principal); E78.5 Hyperlipidemia, unspecified; E11.9 Type 2 diabetes mellitus without complications; K21.9 Gastro-esophageal reflux disease without esophagitis; F41.9 Anxiety disorder, unspecified; K29.70 Gastritis, unspecified, without bleeding; M19.90 Unspecified osteoarthritis, unspecified site; M81.0 Age-related osteoporosis without current pathological fracture; N28.1 Cyst of kidney, acquired; Z87.891 Personal history of nicotine dependence; Z29.9 Encounter for prophylactic measures, unspecified
CPT/HCPCS: 36415; 70450-TC; 71045-TC-FY; 80048; 80053; 80061; 81003; 82550; 82607; 82962; 83036; 83735; 84439; 84443; 84479; 84484; 85025; 85610; 85730; 87086; 93005; 93010; 93306-TC; 96372; 99285-25; C9803; G0378; U0003; U0005

== ENCOUNTER 2021-06-18 13:45 | Emergency (ER) | payer MEDICARE, OTHER ==
[2021-06-18 13:58] VITALS: BP 129/79; PULSE 91; TEMP 97.9; BMI 25.7
[2021-06-18] MEDS ORDERED: DIPHTH,PERTUSS(ACELL),TET 0.5 ML DISP.SYRIN IM ONE ×2 (14:22→14:23)
== END 2021-06-18 14:30 | disposition home or self-care (01) ==
LOC: JERFT 13:45
PROC: 3E0234Z Introduction of Serum, Toxoid and Vaccine into Muscle, Percutaneous Approach (ICD-10-PCS; principal; 2021-06-18)
DX: S61.012A Laceration without foreign body of left thumb without damage to nail, initial encounter (principal); W26.8XXA Contact with other sharp object(s), not elsewhere classified, initial encounter
CPT/HCPCS: 90471; 90715; 99282-25

== ENCOUNTER 2021-06-30 19:16 | Emergency (ER) | payer MEDICARE, OTHER ==
[2021-06-30 19:40] VITALS: TEMP 97.3; BMI 28.3
[2021-06-30] MEDS ORDERED: SODIUM CHLORIDE 0.9% 500 ML INFUS.BAG IV ONE (20:58)
[2021-06-30] MEDS ORDERED: ACETAMINOPHEN 1000 MG/100 ML BAG IVPB ONE (21:09)
[2021-06-30] MEDS ORDERED: ACETAMINOPHEN INJECTION 100 ML IVPB ONE (21:20)
[2021-06-30 21:52] LABS: BASO % 0.3 % (0-2.0); EOS % 0.2 % (0-4.5); HEMOGLOBIN 12.8 GM/dL (10.7-15.3); LYMPH % 12.9 % (8-40); MCH 32.1 pg (25.7-33.7); MCHC 33.6 g/dl (32.0-36.0); MEAN CELL VOLUME 95.4 fl (80-96); MEAN PLT VOLUME 7.8 fl (7.5-11.1); MONO % 8.3 % (3.8-10.2); NEUT % 78.3 % (42.8-82.8); PLATELET COUNT 241 10^3/uL (134-434); RBC 3.98 M/mm3 (3.60-5.2); RDW 13.9 % (11.6-15.6); WHITE BLOOD COUNT 11.4 K/mm3 (4.0-10.0)
[2021-06-30 22:05] LABS: URINE APPEARANCE CLEAR; URINE BILIRUBIN NEGATIVE (NEGATIVE); URINE COLOR YELLOW; URINE GLUCOSE (UA) 3+ (NEGATIVE); URINE KETONE NEGATIVE (NEGATIVE); URINE LEUK ESTERASE NEGATIVE (NEGATIVE); URINE NITRITE NEGATIVE (NEGATIVE); URINE PROTEIN NEGATIVE (NEGATIVE); URINE UROBILINOGEN 0.2 mg/dL (0.2-1.0)
[2021-06-30 22:14] LABS: BLOOD UREA NITROGEN 20.9 mg/dL (7-18); CALCIUM 9.3 mg/dL (8.5-10.1); MAGNESIUM 2.1 mg/dL (1.8-2.4)
[2021-06-30 22:15] LABS: ALBUMIN 3.4 g/dl (3.4-5.0)
[2021-06-30 22:18] LABS: CREATININE 0.8 mg/dL (0.55-1.3)
[2021-06-30 22:19] LABS: BILIRUBIN,TOTAL 0.3 mg/dL (0.2-1)
[2021-07-01 00:13] VITALS: BP 115/64; PULSE 80
== END 2021-07-01 00:18 | disposition home or self-care (01) ==
LOC: JER 19:16
PROC: 3E033GC Introduction of Other Therapeutic Substance into Peripheral Vein, Percutaneous Approach (ICD-10-PCS; principal; 2021-06-30)
DX: E11.65 Type 2 diabetes mellitus with hyperglycemia (principal)
CPT/HCPCS: 36415; 80053; 81003; 82962; 83735; 85025; 87086; 93005; 93010; 96374; 99284-25

== ENCOUNTER 2022-01-30 23:32 | Emergency (ER) | payer MEDICARE, OTHER ==
[2022-01-30 23:39] VITALS: RESP 18; BMI 26.5
[2022-01-31] MEDS ORDERED: METOCLOPRAMIDE HCL INJECTION 10 MG/2 ML VIAL IVPUSH ONE (00:42)
[2022-01-31] MEDS ORDERED: LACTATED RINGERS SOLUTION 1000 ML INFUS.BAG IV ONE (00:42)
[2022-01-31] MEDS ORDERED: METOCLOPRAMIDE HCL INJECTION 10 MG/2 ML VIAL ONE (01:27)
[2022-01-31] MEDS ORDERED: PROCHLORPERAZINE INJECTION 10 MG/2 ML VIAL IVPB ONE (01:46)
[2022-01-31 02:20] LABS: BASO % 0.5 % (0-2.0); EOS % 0.4 % (0-4.5); HEMATOCRIT 38.3 % (32.4-45.2); HEMOGLOBIN 13.1 GM/dL (10.7-15.3); LYMPH % 34.3 % (8-40); MCH 33.3 pg (25.7-33.7); MCHC 34.2 g/dl (32.0-36.0); MEAN CELL VOLUME 97.4 fl (80-96); MEAN PLT VOLUME 8.9 fl (7.5-11.1); MONO % 7.8 % (3.8-10.2); RBC 3.93 M/mm3 (3.60-5.2); RDW 14.5 % (11.6-15.6); WHITE BLOOD COUNT 9.5 K/mm3 (4.0-10.0)
[2022-01-31 02:37] LABS: CALCIUM 9.1 mg/dL (8.5-10.1)
[2022-01-31 02:39] LABS: ALBUMIN 3.6 g/dl (3.4-5.0); BLOOD UREA NITROGEN 18.5 mg/dL (7-18)
[2022-01-31 03:04] LABS: BILIRUBIN,TOTAL 0.4 mg/dL (0.2-1); CREATININE 0.9 mg/dL (0.55-1.3); TOT PROT 7.1 g/dl (6.4-8.2)
[2022-01-31 03:51] LABS: PLATELET COUNT 300 10^3/uL (134-434); PLATELET ESTIMATE ADEQUATE
[2022-01-31 05:40] VITALS: BP 114/48; PULSE 90; TEMP 97.9
== END 2022-01-31 05:54 | disposition home or self-care (01) ==
LOC: JER 23:32
PROC: 3E033NZ Introduction of Analgesics, Hypnotics, Sedatives into Peripheral Vein, Percutaneous Approach (ICD-10-PCS; principal; 2022-01-31)
PROC: 3E033GC Introduction of Other Therapeutic Substance into Peripheral Vein, Percutaneous Approach (ICD-10-PCS; 2022-01-31)
DX: R51.9 Headache, unspecified (principal)
CPT/HCPCS: 36415; 70450-TC; 70496-TC; 70498-TC; 80053; 85025; 99285-25

== ENCOUNTER 2023-09-26 14:26 | Emergency (ER) | payer MEDICARE, OTHER ==
[2023-09-26 14:33] VITALS: RESP 18; BMI 27.4
[2023-09-26] MEDS ORDERED: MECLIZINE HCL 25 MG TABLET (FP) ONE (15:24)
[2023-09-26] MEDS: MECLIZINE HCL 25 MG TABLET (FP) PO ONE (15:29)
[2023-09-26] MEDS: LACTATED RINGERS SOLUTION 1000 ML INFUS.BAG IV ONE (15:38)
[2023-09-26 15:48] LABS: BASO % 0.5 % (0-2.0); EOS % 1.3 % (0-4.5); HEMATOCRIT 37.9 % (32.4-45.2); LYMPH % 42.4 % (8-40); MCH 32.1 pg (25.7-33.7); MCHC 34.3 g/dl (32.0-36.0); MEAN CELL VOLUME 93.6 fl (80-96); MEAN PLT VOLUME 7.9 fl (7.5-11.1); MONO % 7.4 % (3.8-10.2); NEUT % 48.4 % (42.8-82.8); PLATELET COUNT 283 10^3/uL (134-434); RBC 4.04 M/mm3 (3.60-5.2); RDW 13.8 % (11.6-15.6); WHITE BLOOD COUNT 7.8 K/mm3 (4.0-10.0)
[2023-09-26 15:55] LABS: INR 0.93 (0.83-1.09); PROTHROMBIN TIME (PATIENT) 10.7 SEC (9.7-13.0)
[2023-09-26 15:57] LABS: ACTIVATED PTT 30.2 SECONDS (25.2-36.5)
[2023-09-26 16:13] LABS: URINE APPEARANCE CLEAR; URINE BILIRUBIN NEGATIVE (NEGATIVE); URINE COLOR YELLOW; URINE GLUCOSE (UA) 3+ (NEGATIVE); URINE KETONE NEGATIVE (NEGATIVE); URINE LEUK ESTERASE NEGATIVE (NEGATIVE); URINE NITRITE NEGATIVE (NEGATIVE); URINE PROTEIN NEGATIVE (NEGATIVE); URINE UROBILINOGEN 0.2 mg/dL (0.2-1.0)
[2023-09-26 16:14] LABS: POTASSIUM 3.9 mmol/L (3.5-5.1)
[2023-09-26 16:17] LABS: ALBUMIN 3.7 g/dl (3.4-5.0); BLOOD UREA NITROGEN 13.5 mg/dL (7-18); CALCIUM 9.4 mg/dL (8.5-10.1)
[2023-09-26 16:59] LABS: BILIRUBIN,TOTAL 0.4 mg/dL (0.2-1); CREATININE 0.7 mg/dL (0.55-1.3); TOT PROT 7.2 g/dl (6.4-8.2)
[2023-09-26 18:35] VITALS: BP 113/70; PULSE 73; TEMP 98.1
== END 2023-09-26 18:38 | disposition home or self-care (01) ==
LOC: JER 14:26
DX: R42 Dizziness and giddiness (principal)
CPT/HCPCS: 36415; 70450-TC; 71045-TC-FY; 80053; 81003; 84484; 85025; 85610; 85730; 87086; 93005; 93010; 99285-25

== ENCOUNTER 2023-10-21 10:29 | Day surgery (SDC) | payer MEDICARE, OTHER ==
[2023-10-21] MEDS: ZOLEDRONIC ACID/MAN/WATER 5 MG/100 ML INFUS..BTL IVPB ONE (11:21)
[2023-10-21 11:33] VITALS: BP 111/53; TEMP 98.1
[2023-10-21 12:24] VITALS: PULSE 78; RESP 18
== END 2023-10-21 12:15 | disposition home or self-care (01) ==
LOC: FINFUSION 10:29 → FM/S 10:34 → FINFUSION 12:15
PROVIDERS: ATTEND Family Medicine
PROC: 3E033GC Introduction of Other Therapeutic Substance into Peripheral Vein, Percutaneous Approach (ICD-10-PCS; principal; 2023-10-21)
DX: M81.0 Age-related osteoporosis without current pathological fracture (principal)
CPT/HCPCS: 96365; J3489

== ENCOUNTER 2023-10-22 13:15 | Emergency (ER) | payer MEDICARE, OTHER ==
[2023-10-22 13:22] VITALS: BP 129/62; PULSE 76; RESP 19; TEMP 97.9; BMI 28.5
[2023-10-22] MEDS ORDERED: diphenhydrAMINE HCL 25 MG CAPSULE (FP) PO ONE (14:39)
[2023-10-22] MEDS ORDERED: DEXAMETHASONE SOD PHOSPHATE 10 MG/1 ML VIAL ONE (14:40)
[2023-10-22] MEDS ORDERED: FAMOTIDINE 20 MG TABLET ONE (14:40)
[2023-10-22] MEDS: diphenhydrAMINE HCL 12.5 MG/5 ML UNIT-DOSE CUPS PO ONE (14:44)
[2023-10-22] MEDS: DEXAMETHASONE SOD PHOSPHATE 10 MG/1 ML VIAL PO ONE (14:44)
[2023-10-22] MEDS: FAMOTIDINE 20 MG TABLET PO ONE (14:44)
[2023-10-22] MEDS ORDERED: ACETAMINOPHEN 325 MG TABLET (FP) ONE (15:14)
[2023-10-22] MEDS: ACETAMINOPHEN 325 MG TABLET (FP) PO ONE (15:15)
== END 2023-10-22 16:20 | disposition home or self-care (01) ==
LOC: JERFT 13:15
DX: R51.9 Headache, unspecified (principal); R42 Dizziness and giddiness; R07.0 Pain in throat; R23.2 Flushing; T50.995A Adverse effect of other drugs, medicaments and biological substances, initial encounter; R21 Rash and other nonspecific skin eruption
CPT/HCPCS: 99283-25; J1100

== ENCOUNTER 2024-01-17 05:08 | Day surgery (SDC) | payer MEDICARE, OTHER ==
[2024-01-13 16:03] VITALS: BMI 27.7
[2024-01-17] MEDS ORDERED: MIDAZOLAM HCL 2 MG/2 ML SINGLE DOSE VIAL ONE (09:30)
[2024-01-17] MEDS ORDERED: LIDOCAINE HCL/PF 2% SDV 5ML VIAL ONE (09:30)
[2024-01-17] MEDS ORDERED: PROPOFOL 20 ML ONE (09:30)
[2024-01-17] MEDS ORDERED: DEXAMETHASONE SOD PHOSPHATE 4 MG/1 ML VIAL ONE (09:45)
[2024-01-17] MEDS ORDERED: KETOROLAC TROMETHAMINE 30 MG/1 ML VIAL ONE (09:45)
[2024-01-17] MEDS ORDERED: ONDANSETRON 4 MG/2 ML VIAL ONE (09:45)
[2024-01-17] MEDS ORDERED: ceFAZolin SODIUM 1 GM VIAL ONE (09:45)
[2024-01-17] MEDS: ceFAZolin SODIUM 1 GM VIAL IVPB ONE (09:47)
[2024-01-17] MEDS ORDERED: oxyCODONE HCL 5 MG TABLET PO PRN ×2 (10:01)
[2024-01-17] MEDS ORDERED: PROMETHAZINE HCL 25 MG/1 ML VIAL IVPB PRN (10:01)
[2024-01-17] MEDS ORDERED: ONDANSETRON 4 MG/2 ML VIAL IVPUSH PRN (10:01)
[2024-01-17] MEDS: LACTATED RINGERS SOLUTION 1,000 ML IV SCH (10:05)
[2024-01-17] MEDS ORDERED: ACETAMINOPHEN INJECTION 100 ML ONE (10:53)
[2024-01-17] MEDS: ACETAMINOPHEN 1000 MG/100 ML BAG IVPB ONE (10:55)
[2024-01-17 11:31] VITALS: RESP 16
[2024-01-17 12:17] VITALS: BP 126/49; PULSE 55; TEMP 97.3
== END 2024-01-17 12:21 | disposition home or self-care (01) ==
LOC: JASU-SURG 05:08
PROVIDERS: ATTEND Urology
PROC: 0TJB8ZZ Inspection of Bladder, Via Natural or Artificial Opening Endoscopic (ICD-10-PCS; principal; 2024-01-17 10:00)
DX: N32.81 Overactive bladder (principal)
CPT/HCPCS: 82010; 94760; J0131

== ENCOUNTER 2024-02-25 04:54 | Day surgery (SDC) | payer MEDICARE, OTHER ==
[2024-02-23 14:20] VITALS: BMI 26.9
[2024-02-25] MEDS ORDERED: BUPIVACAINE HCL/PF 0.5% (5MG/ML) 10 ML VIAL ONE (07:27)
[2024-02-25] MEDS ORDERED: MIDAZOLAM HCL 2 MG/2 ML SINGLE DOSE VIAL ONE (08:06)
[2024-02-25] MEDS ORDERED: ONDANSETRON 4 MG/2 ML VIAL IVPUSH PRN (08:11)
[2024-02-25] MEDS ORDERED: oxyCODONE HCL 5 MG TABLET PO PRN (08:11)
[2024-02-25] MEDS ORDERED: LACTATED RINGERS SOLUTION 1,000 ML IV SCH (08:15)
[2024-02-25] MEDS ORDERED: ACETAMINOPHEN INJECTION 100 ML ONE (08:16)
[2024-02-25] MEDS ORDERED: SEVOFLURANE 250 ML BTL ONE (08:16)
[2024-02-25] MEDS ORDERED: LIDOCAINE HCL 2% 100 MG/5 ML DISP.SYRIN ONE (08:19)
[2024-02-25] MEDS ORDERED: DEXAMETHASONE SOD PHOSPHATE 4 MG/1 ML VIAL ONE (08:20)
[2024-02-25] MEDS ORDERED: ROCURONIUM BROMIDE 50 MG/5 ML SYRINGE ONE ×2 (08:20→10:23)
[2024-02-25] MEDS ORDERED: PROPOFOL 20 ML ONE ×2 (08:20→09:02)
[2024-02-25] MEDS ORDERED: ceFAZolin SODIUM 1 GM VIAL ONE (08:20)
[2024-02-25] MEDS ORDERED: SUGAMMADEX SODIUM 200 MG/2 ML VIAL ONE (08:20)
[2024-02-25] MEDS: ceFAZolin SODIUM 1 GM VIAL IVPB ONE (08:30)
[2024-02-25] MEDS: BUPIVACAINE HCL/PF 0.5% (5 MG/ML) 30 ML VIAL IJ ONE (08:41)
[2024-02-25] MEDS ORDERED: KETOROLAC TROMETHAMINE 30 MG/1 ML VIAL ONE (09:53)
[2024-02-25 13:57] VITALS: RESP 18; TEMP 97.7
[2024-02-25] MEDS ORDERED: oxyCODONE HCL 5 MG TABLET ONE (14:00)
[2024-02-25] MEDS: oxyCODONE HCL 5 MG TABLET PO PRN (14:05)
[2024-02-25 15:14] VITALS: BP 118/54; PULSE 67
== END 2024-02-25 15:30 | disposition home or self-care (01) ==
LOC: JASU-SURG 04:54
PROVIDERS: ATTEND Surgery
PROC: 8E0W4CZ Robotic Assisted Procedure of Trunk Region, Percutaneous Endoscopic Approach (ICD-10-PCS; 2024-02-25)
PROC: 0DNW4ZZ Release Peritoneum, Percutaneous Endoscopic Approach (ICD-10-PCS; 2024-02-25)
PROC: 0DQ84ZZ Repair Small Intestine, Percutaneous Endoscopic Approach (ICD-10-PCS; 2024-02-25)
PROC: 0WUF4JZ Supplement Abdominal Wall with Synthetic Substitute, Percutaneous Endoscopic Approach (ICD-10-PCS; principal; 2024-02-25 08:00)
DX: K43.2 Incisional hernia without obstruction or gangrene (principal); K66.0 Peritoneal adhesions (postprocedural) (postinfection); K91.71 Accidental puncture and laceration of a digestive system organ or structure during a digestive system procedure
CPT/HCPCS: 44602; 49591; S2900; 82010; 82962; 94760; C1781; J0131